=== PATIENT | male | born 1960 | race Hispanic/Latino ===

== ENCOUNTER → 2022-08-06 | Outpatient (CLI) | payer OTHER ==
[2022-08-06 09:50] LABS: BASOPHILS % (AUTO) 0.2 % (0.0-5.0); EOSINOPHILS % (AUTO) 1.3 % (0.0-8.0); HEMATOCRIT 48.5 % (42-54); LYMPHOCYTES % (AUTO) 29.6 % (21.0-51.0); MEAN CORPUSCULAR HEMOGLOBIN 29.8 pg (27.0-33.0); MEAN CORPUSCULAR HGB CONC 32.6 g/dL (32.0-36.0); MEAN CORPUSCULAR VOLUME 91.3 fL (79-99); NEUTROPHILS % (AUTO) 60.7 % (40.0-77.0); PLATELET COUNT (AUTO) 190 K/uL (130-400); RED BLOOD CELL COUNT(AUTO) 5.31 MIL/uL (4.50-6.20)
[2022-08-06 10:02] LABS: HEMOGLOBIN A1C 5.4 % (4.0-6.0)
[2022-08-06 10:52] LABS: ALBUMIN 4.1 g/dL (3.5-5.0); POTASSIUM 4.2 mmol/L (3.5-5.1); THYROID STIMULATING HORMONE 0.65 uIU/mL (0.36-3.74); TOTAL PROTEIN, SERUM 7.8 g/dL (6.0-8.3)
== END | disposition home or self-care (01) ==
LOC: LAB 07:48
PROVIDERS: ATTEND Internal Medicine
DX: Z00.00 Encounter for general adult medical examination without abnormal findings (principal); R05.3 Chronic cough; K21.9 Gastro-esophageal reflux disease without esophagitis; R35.1 Nocturia; I10 Essential (primary) hypertension
CPT/HCPCS: 36415; 71046; 80053; 80061; 82043; 83013; 83036; 84153; 84439; 84443; 85025

== ENCOUNTER 2022-10-12 10:46 | Day surgery (SDC) | payer OTHER ==
[~2022-10-12] VITALS: Ht 177.8 cm; Wt 95.9 kg
[~2022-10-12 10:46] MED LIST: ATOR20TA65 PO; LOSA100T59 PO
[2022-10-12 11:12] VITALS: BP 118/68; PULSE 53; RESP 16
[2022-10-12] MEDS ORDERED: PROPOFOL 10 MG/ML 20ML VIAL IV ONE (11:32)
[2022-10-12] MEDS ORDERED: LIDOCAINE HCL 1% 20 ML VIAL ONE (11:32)
[2022-10-12] MEDS ORDERED: EPHEDRINE SULFATE 50 MG/ML AMPULE ONE (12:04)
== END 2022-10-12 12:38 | disposition home or self-care (01) ==
LOC: ENDO 10:46
PROVIDERS: ATTEND Internal Medicine Gastroenterology
DX: Z12.11 Encounter for screening for malignant neoplasm of colon (principal); Z20.822 Contact with and (suspected) exposure to COVID-19; R12 Heartburn; R13.10 Dysphagia, unspecified; K31.89 Other diseases of stomach and duodenum; K29.50 Unspecified chronic gastritis without bleeding; I10 Essential (primary) hypertension; E78.5 Hyperlipidemia, unspecified; Z90.49 Acquired absence of other specified parts of digestive tract; Z98.890 Other specified postprocedural states; Z72.89 Other problems related to lifestyle; Z79.82 Long term (current) use of aspirin; Z79.899 Other long term (current) drug therapy
CPT/HCPCS: 43239; 45378; J3490; J2704; A4620; A4215 ×2; A4223; A7002; A4222; A4221; A4663; J7030; A4606